=== PATIENT | female | born 1940 | race Caucasian/White ===

== ENCOUNTER 2018-01-24 18:00 | Inpatient (IN) | payer MEDICARE ==
[~2018-01-24] VITALS: Ht 162.6 cm; Wt 61.2 kg
--- NOTE | ~2018-01-24 | PN ---
PATIENT:KENDALL CASEY MEDICAL RECORD: [id number] LOCATION:[facility] ADMISSION DATE: 01/24/18 PROGRESS NOTE DATE OF SERVICE: 01/31/2018 SUBJECTIVE: The patient complains of not feeling "perky" this morning. She says she is more tired than she has been. OBJECTIVE: Adult protective services is involved with his case. Staff notes that the patient overall is improving, but that she does become much more confused and occasionally agitated at night. On exam today, the patient's mood is very pleasant. She orients well toward the examiner. Affect is bland. Speech is somewhat hesitant and shows latency. Content of thought is negative for overt psychosis. Sensorium shows no change. ASSESSMENT: No change in diagnosis. PLAN: 1. Continue current medication. 2. Continue supportive therapy. TRANSINT:[id number] Voice Confirmation ID: [id number] DOCUMENT ID: [id number] VAMSI PRADO III, MD at 0535 CC: [id number] DICTATION DATE: 01/31/18 112 PAYROLL TAX ANALYST: 01/31/18 1327 ADM IN [facility] [address] [id number]
--- NOTE | ~2018-01-24 | PN ---
PATIENT:KENDALL CASEY MEDICAL RECORD: [id number] LOCATION:[facility] ADMISSION DATE: 01/24/18 PROGRESS NOTE DATE OF SERVICE: 02/03/2018 SUBJECTIVE: The patient's case was discussed with staff. She has no new complaint. OBJECTIVE: The patient is in good behavioral control. She has poor insight about her condition. She tolerates her medicines well. ASSESSMENT: No change in diagnoses. PLAN: Current medicines and therapies have been reviewed and will be maintained. I am going to increase the patient's Zoloft to 50 mg daily. TRANSINT:[id number] Voice Confirmation ID: [id number] DOCUMENT ID: [id number] YULIA ZARATE MD at 1458 CC: [id number] DICTATION DATE: 02/03/18 1429 SIGNALS OFFICER: 02/03/18 1441 ADM IN [id number] [place] [address]
--- NOTE | ~2018-01-24 | PN ---
PATIENT:KENDALL CASEY MEDICAL RECORD: [id number] LOCATION:[facility] ADMISSION DATE: 01/24/18 PROGRESS NOTE DATE OF SERVICE: 02/06/2018 SUBJECTIVE: The patient's case was discussed with staff. She has no new complaint. OBJECTIVE: The patient is in good behavioral control. She has no thoughts of harming herself or others. She has moderate impairment of her short-term memory. ASSESSMENT: No change in diagnoses. PLAN: Brief supportive and educational interventions were made. Long Term prognosis is guarded. TRANSINT:[id number] Voice Confirmation ID: [id number] DOCUMENT ID: [id number] YULIA ZARATE MD at 1412 CC: [id number] DICTATION DATE: 02/06/18 1348 BUS AND TROLLEY INSPECTING DISPATCHER: 02/06/18 1443 ADM IN [facility] [address] [place] [address]
--- NOTE | ~2018-01-24 | PN ---
PATIENT:KENDALL CASEY MEDICAL RECORD: [id number] LOCATION:[facility] ADMISSION DATE: 01/24/18 PROGRESS NOTE DATE OF SERVICE: 01/27/2018 SUBJECTIVE: The patient's case was discussed with staff. She has no new complaint. OBJECTIVE: The patient is in good behavioral control with poor insight about her condition. She tolerates her medicines well. ASSESSMENT: No change in diagnoses. PLAN: Current medicines and therapies have been reviewed and will be maintained. Long-term prognosis is guarded. TRANSINT:[id number] Voice Confirmation ID: [id number] DOCUMENT ID: [id number] YULIA ZARATE MD at 1435 CC: [id number] DICTATION DATE: 01/27/18 1455 MAMMA LOGIST: 01/27/18 1643 ADM IN [id number] [place] [address]
--- NOTE | ~2018-01-24 | PN ---
PATIENT:KENDALL CASEY MEDICAL RECORD: [id number] LOCATION:[facility] ADMISSION DATE: 01/24/18 PROGRESS NOTE DATE OF SERVICE: 02/07/2018 SUBJECTIVE: The patient expresses frustration at having to be in the hospital. OBJECTIVE: Staff notes the patient continues to appear quite dysphoric. Discharge planning is working on placement issues. On exam, mood is somewhat dysphoric. Affect is constricted. Speech is very terse. Content of thought shows no overt psychosis. Sensorium is unchanged. ASSESSMENT: No change in diagnosis. PLAN: 1. We will likely adjust antidepressant medication. 2. Continue other current medications. 3. Continue supportive therapy. TRANSINT:[id number] Voice Confirmation ID: [id number] DOCUMENT ID: [id number] VAMSI PRADO III, MD at 0628 CC: [id number] DICTATION DATE: 02/07/18 1110 TURBINE SUBASSEMBLER: 02/07/18 1443 ADM IN [id number] [place] [address]
--- NOTE | ~2018-01-24 | PN ---
PATIENT:KENDALL CASEY MEDICAL RECORD: [id number] LOCATION:[facility] ADMISSION DATE: 01/24/18 PROGRESS NOTE DATE OF SERVICE: 01/30/2018 SUBJECTIVE: The patient's case was discussed with staff. She has no new complaint. OBJECTIVE: The patient is in good behavioral control with limited insight about her condition. She tolerates her medicines well. ASSESSMENT: No change in diagnoses. PLAN: I anticipate the patient can be transitioned out of the hospital soon if this level of improvement is maintained. Long-term prognosis is guarded. TRANSINT:[id number] Voice Confirmation ID: [id number] DOCUMENT ID: [id number] YULIA ZARATE MD at 1324 CC: [id number] DICTATION DATE: 01/30/18 1416 SENIOR COBOL DEVELOPER: 01/30/18 1431 ADM IN [id number] [place] [address]
--- NOTE | ~2018-01-24 | PN ---
PATIENT:KENDALL CASEY MEDICAL RECORD: [id number] LOCATION:[facility] ADMISSION DATE: 01/24/18 PROGRESS NOTE DATE OF SERVICE: 02/13/2018 SUBJECTIVE: The patient's case was discussed with staff. She has no new complaint. OBJECTIVE: The patient denies intent to harm herself or others. She generally tolerates her medicines well. Eye contact is fair. ASSESSMENT: No change in diagnoses. PLAN: Current medicines have been reviewed and will be maintained. Long-term prognosis is guarded. TRANSINT:[id number] Voice Confirmation ID: [id number] DOCUMENT ID: [id number] YULIA ZARATE MD at 0927 CC: [id number] DICTATION DATE: 02/13/18 1209 PLANTING MACHINE CREWMAN: 02/13/18 1508 DIS IN 02/13/18 [facility] [address] [place] [address]
--- NOTE | ~2018-01-24 | PN ---
PATIENT:KENDALL CASEY MEDICAL RECORD: [id number] LOCATION:[facility] ADMISSION DATE: 01/24/18 PROGRESS NOTE DATE OF SERVICE: 02/10/2018 SUBJECTIVE: The patient's case was discussed with staff. She has no new complaint. OBJECTIVE: The patient is in good behavioral control with limited insight about her condition. She does tolerate her medications well. ASSESSMENT: No change in diagnoses. PLAN: Brief supportive and educational interventions were made. Snf prognosis is guarded. TRANSINT:[id number] Voice Confirmation ID: [id number] DOCUMENT ID: [id number] YULIA ZARATE MD at 1429 CC: [id number] DICTATION DATE: 02/10/18 1412 COUNTER HOP: 02/10/18 1424 ADM IN [id number] [place] [address]
--- NOTE | ~2018-01-24 | DS ---
PATIENT:KENDALL CASEY :40 MEDICAL RECORD: [id number] DISCHARGE SUMMARY ADMISSION DATE: 01/24/18 DISCHARGE DATE: 02/13/18 IDENTIFYING DATA: The patient is 77 years old and she was admitted to the hospital on a voluntary basis. The patient lives in an unlocked assisted living center in [place]. She apparently has been confused and demanding to leave and wandering away from the facility. Apparently adult protective services has been involved in her case because of her leaving and lack of supervision. There is a great deal of conflict between the patient's children over how to handle the situation. The patient is very angry about being in an assisted living center and wants to be in her own apartment, which she is not capable of doing. She becomes angry and aggressive with family. HOSPITAL COURSE: The patient was admitted to the hospital and comprehensively evaluated from both medical, psychological, and social standpoint. She was certainly appropriate for a locked facility and that was arranged. She was clearly demented and it was advanced. She was treated with both mood stabilizing and memory enhancing medications and did show significant improvement. She subsequently was transitioned out of the hospital. DISCHARGE DIAGNOSES: AXIS I: Senile dementia of the Alzheimer's type with behavioral disturbances. AXIS II: None. AXIS III: Hypertension. AXIS IV: Moderate stressors. AXIS V: Global assessment of functioning is 40. PLAN: At the time of discharge, the patient was in good behavioral control with limited insight about her condition. She was tolerating her medications well. Her long-term prognosis is guarded. Followup is to be with her primary care correction physician. TRANSINT:[id number] Voice Confirmation ID: [id number] DOCUMENT ID: [id number] YULIA ZARATE MD at 1203 CC: [id number] DICTATION DATE: 02/20/18 1330 OPEN HEARTH FURNACE OPERATOR: 02/20/18 1434 DIS IN 02/13/[address] [facility] [address] [place] [address]
--- NOTE | ~2018-01-24 | PN ---
PATIENT:KENDALL CASEY MEDICAL RECORD: [id number] LOCATION:[facility] ADMISSION DATE: 01/24/18 PROGRESS NOTE DATE OF SERVICE: 02/12/2018 SUBJECTIVE: The patient's case was discussed with staff. She has no new complaint. OBJECTIVE: The patient is in good behavioral control with limited insight about her condition. She tolerates her medicines well. ASSESSMENT: No change in diagnoses. PLAN: The patient was scheduled to leave today but is going to have to be tomorrow. There are issues between the patient's adult protective services mammography supervisor and the fpc. Long-term prognosis is guarded. TRANSINT:[id number] Voice Confirmation ID: [id number] DOCUMENT ID: [id number] YULIA ZARATE MD at 1200 CC: [id number] DICTATION DATE: 02/12/18 165 LEGAL ASSISTANT: 02/12/18 2253 ADM IN [address] [place] [address]
--- NOTE | ~2018-01-24 | PN ---
PATIENT:KENDALL CASEY MEDICAL RECORD: [id number] LOCATION:[facility] ADMISSION DATE: 01/24/18 PROGRESS NOTE DATE OF SERVICE: 02/05/2018 SUBJECTIVE: The patient's case was discussed with staff. She has no new complaint. OBJECTIVE: The patient is in good behavioral control. She has poor insight about her condition. She generally tolerates her medicines well. ASSESSMENT: No change in diagnoses. PLAN: Brief supportive and educational interventions were made. Long-term prognosis is guarded. I anticipate she can be transitioned out of the hospital soon if placement can be arranged. She is being considered by a half-way in [place]. The patient's daughter lives in [place] and that is why half-way in that [facility] has been selected. TRANSINT:[id number] Voice Confirmation ID: [id number] DOCUMENT ID: [id number] YULIA ZARATE MD at 1339 CC: [id number] DICTATION DATE: 02/05/18 1456 SHOE REPAIR COBBLER: 02/05/18 1755 ADM IN [facility] [address] [place] [address]
--- NOTE | ~2018-01-24 | PN ---
PATIENT:KENDALL CASEY MEDICAL RECORD: [id number] LOCATION:[facility] ADMISSION DATE: 01/24/18 PROGRESS NOTE DATE OF SERVICE: 02/08/2018 SUBJECTIVE: No new complaint. OBJECTIVE: Staff reports the patient has been irritable this morning. She typically does not like to get out of bed early in the morning. However, later in the day, she is passively cooperative. On exam, mood very irritable. Affect is brittle. Speech is terse. Content of thought focuses on somatic concerns. Sensorium shows no change. ASSESSMENT: No change in diagnosis. PLAN: 1. Continue current medication. 2. Continue supportive therapy. TRANSINT:[id number] Voice Confirmation ID: [id number] DOCUMENT ID: [id number] VAMSI PRADO III, MD at 0706 CC: [id number] DICTATION DATE: 02/08/18 0832 DATA SUPPORT SPECIALIST: 02/08/18 1212 ADM IN [id number] [place] [address]
--- NOTE | ~2018-01-24 | PN ---
PATIENT:KENDALL CASEY MEDICAL RECORD: [id number] LOC[facility] ADMISSION DATE: 01/24/18 PROGRESS NOTE DATE OF SERVICE: 01/28/2018 SUBJECTIVE: The patient's case was discussed with staff. She has no new complaint. OBJECTIVE: The patient is in good behavioral control, but severely impaired cognitively. She has been somewhat irritable, but not rising to the level of being an unmanageable symptom. She is tolerating her medicines well. ASSESSMENT: No change in diagnoses. PLAN: Supportive and educational interventions were made. Long-term prognosis is guarded. TRANSINT:[id number] Voice Confirmation ID: [id number] DOCUMENT ID: [id number] YULIA ZARATE MD at 1352 CC: [id number] DICTATION DATE: 01/28/18 1458 SECURED ENTRANCE MONITOR: 01/28/18 1607 ADM IN [id number] [place] [id number]
--- NOTE | ~2018-01-24 | PN ---
PATIENT:KENDALL CASEY MEDICAL RECORD: [id number] LOC[facility] ADMISSION DATE: 01/24/18 PROGRESS NOTE DATE OF SERVICE: 02/11/2018 SUBJECTIVE: The patient's case was discussed with staff. She has no new complaint. OBJECTIVE: The patient denies intent to harm herself or others. She generally tolerates her medicines well. She is impaired cognitively, but not aggressive. ASSESSMENT: No change in diagnoses. PLAN: The patient will be maintained on current medications. There is a delay in her discharge and she cannot be discharged until tomorrow because of some problems with adult protective services needing to sign papers for the halfway. TRANSINT:[id number] Voice Confirmation ID: [id number] DOCUMENT ID: [id number] YULIA ZARATE MD at 1631 CC: [id number] DICTATION DATE: 02/11/18 1441 BRASS WIND INSTRUMENTS TUBE BENDER: 02/11/18 1453 ADM IN [facility] [address] [place] [address]
--- NOTE | ~2018-01-24 | PN ---
PATIENT:KENDALL CASEY MEDICAL RECORD: [id number] LOC[facility] ADMISSION DATE: 01/24/18 PROGRESS NOTE DATE OF SERVICE: 01/29/2018 SUBJECTIVE: The patient's case was discussed with staff. She has no new complaint. OBJECTIVE: The patient denies intent to harm herself or others. She tolerates her medicines well. ASSESSMENT: No change in diagnoses. PLAN: Brief supportive and educational interventions were made. Long-term prognosis is guarded. The patient is anxious but it has improved. TRANSINT:[id number] Voice Confirmation ID: [id number] DOCUMENT ID: [id number] YULIA ZARATE MD at 1308 CC: [id number] DICTATION DATE: 01/29/18 1415 TRANSIT OPERATOR: 01/29/18 1449 ADM IN [id number] [place] [address]
--- NOTE | ~2018-01-24 | PN ---
PATIENT:EKNDALL CASEY MEDICAL RECORD: [id number] LOC[facility] ADMISSION DATE: 01/24/18 PROGRESS NOTE DATE OF SERVICE: 02/04/2018 SUBJECTIVE: The patient's case was discussed with staff. She has no new complaint. OBJECTIVE: The patient denies intent to harm herself or others. She does tolerate her medications well. ASSESSMENT: No change in diagnoses. PLAN: Brief supportive and educational interventions were made. The patient is being considered by a alf in [place]. She is being considered for a placement so far away because her daughter lives there. She is in need of some surgical attention and has been referred back to the surgeon in [place] who performed the most recent surgery. TRANSINT:[id number] Voice Confirmation ID: [id number] DOCUMENT ID: [id number] YULIA ZARATE MD at 1436 CC: [id number] DICTATION DATE: 02/04/18 1510 WIND TURBINE DESIGN ENGINEER: 02/04/18 1543 ADM IN [id number] [place] [address]
--- NOTE | ~2018-01-24 | PSY ---
PATIENT NAME:KENDALL CASEY MEDICAL RECORD: [id number] : 40 [facility] ADMISSION DATE: 01/24/18 ACCOUNT: [id number] PSYCHIATRIC EVALUATION DATE OF EVALUATION: 01/25/18 IDENTIFYING DATA: The patient is 77 years old and she was admitted to the hospital on a voluntary basis. CHIEF COMPLAINT: None. HISTORY OF PRESENT ILLNESS: The patient lives in an unlocked assisted living center in [place]. She apparently is confused and demanding to leave and has been wandering away from the facility. Apparently adult protective services have been involved in her case in the past, although I do not know the details of this. I do know that there has been some conflict between siblings and the patient is brought to us involuntarily on an emergency adult protective services hold. The patient is not angry about this, but says that she wants to go and live in her own apartment and not at the assisted living center. She says she has never been diagnosed with dementia and does not know why she is not being allowed to do this. She denies depressive symptoms. She denies psychotic symptoms and she denies that she was having any kind of aggression at the assisted living center. She does recall that she lived there. PAST MEDICAL HISTORY: Significant for hypercholesterolemia and hypertension. PAST PSYCHIATRIC HISTORY: None by her account. FAMILY PSYCHIATRIC HISTORY: None by her account. ALLERGIES: PENICILLIN AND CODEINE. CURRENT MEDICATIONS: Include hydrocodone, aspirin, Pravachol, Toprol, Ventolin. SOCIAL HISTORY: The patient is . She has adult children involved with her care. She lives in an assisted living center. She denies a history of drug or alcohol abuse. MENTAL STATUS EXAMINATION: The patient is awake, alert, and oriented to person and place, but not to time or situation. She does not know the year at all. She would not even make a guess. She just laughs and says she does not keep up with such things. She does not know why she is here and has no recollection of the events that took place yesterday that brought her here. Her mood is flat. Her affect is constricted. Thought processes are circumstantial. Memory, concentration, and abstraction abilities are at least moderately impaired and she denies any active intent to harm herself or others as well as any overt psychotic symptoms. ASSETS: Supportive family members. LIABILITIES: Limited insight. DIAGNOSTIC IMPRESSION: AXIS I: Senile dementia of the Alzheimer's type with behavioral disturbances. AXIS II: None. AXIS III: Hypertension. AXIS IV: Moderate stressors. AXIS V: Global assessment of functioning is 35. PLAN: At this time, the patient is admitted to the hospital secondary to aggressive behavior associated with a dementing illness. She will be comprehensively evaluated from both a medical, psychological, and social standpoint. She will be treated with both mood stabilizing and memory enhancing medications. Her long-term prognosis is guarded. TRANSINT:[id number] Voice Confirmation ID: [id number] DOCUMENT ID: [id number] YULIA ZARATE MD at 0822 CC: [id number] DICTATION DATE: 01/25/18 1215 REPAIR MANAGER: 01/25/18 1243 ADM IN [facility] [address] [id number]
[2018-01-24] MEDS ORDERED: APAP325 MG PO (21:04)
[2018-01-24] MEDS ORDERED: ADVAIR 100/501 DISK (21:05)
[2018-01-24] MEDS ORDERED: BAYER CHEWABLE81 MG PO (21:08)
[2018-01-24] MEDS ORDERED: PROAIR HFA8.5 GM INH (21:08)
[2018-01-24] MEDS ORDERED: BIOFREEZE118 ML (21:10)
[2018-01-24] MEDS ORDERED: CELEXA20 MG (21:11)
[2018-01-24] MEDS ORDERED: ELIQUIS2.5 MG (21:11)
[2018-01-24] MEDS ORDERED: MULTIPLE VITAMI1 TA1 (21:14)
[2018-01-24] MEDS ORDERED: TOPROL XL50 MG (21:15)
[2018-01-24] MEDS ORDERED: NICODERM C1 PATCH .3 (21:15)
[2018-01-24] MEDS ORDERED: HYDROCODON-ACE1 EAC7 PO (21:20)
[2018-01-24] MEDS ORDERED: PRAVACHOL20 MG PO (21:21)
[2018-01-24] MEDS ORDERED: SPIRIVA18 MCG INH (21:22)
[2018-01-24] MEDS ORDERED: ACETAMINOPHEN325 MG PO (21:25)
[2018-01-25 00:22] VITALS: BP 178/92; BMI 23.2
[2018-01-25 06:19] LABS: BASOPHILS 0.2 % (0-2); EOSINOPHILS 2.6 % (0-7); HEMATOCRIT 41.1 % (36.0-48.0); HEMOGLOBIN 13.3 g/dL (12-16); IMMATURE GRANULOCYTES 0.2 % (0-5); LYMPHOCYTES 32.9 % (15-50); MCH 29.2 pg (26.0-34.0); MCHC 32.4 g/dL (31.0-37.0); MCV 90.1 fL (80.0-100.0); MEAN PLATELET VOLUME 9.1 fL (7.4-10.4); MONOCYTES 8.1 % (2-11); PLATELET COUNT 347 10x3/uL (130-400); RBC 4.56 10x6/uL (4.00-5.40); RDW 14.7 % (11.5-14.5); WBC 8.1 10x3/uL (4.8-10.8)
[2018-01-25 07:04] LABS: ALBUMIN 3.3 g/dL (3.4-5.0); ALKALINE PHOSPHATASE 113 U/L (46-116); ALT (SGPT) 36 U/L (10-68); BILIRUBIN - TOTAL 0.29 mg/dL (0.2-1.3); CALC OSMOLALITY 280 mosm/kg (275-300); CALCIUM 8.6 mg/dL (8.5-10.1); CARBON DIOXIDE 18.2 mmol/L (21.0-32.0); CHLORIDE - SERUM 107 mmol/L (98-107); CHOLESTEROL, TOTAL 188 mg/dL (0-200); CREATININE - SERUM 0.7 mg/dL (0.6-1.3); GLUCOSE 82 mg/dL (74-106); POTASSIUM - SERUM 5.1 mmol/L (3.5-5.1); PROTEIN - SERUM 7.1 g/dL (6.4-8.2); SODIUM 139 mmol/L (136-145); THYROID STIMULATING HORMONE 1.96 uIU/mL (0.36-3.74); TRIGLYCERIDE 147 mg/dL (30-200); UREA NITROGEN 25 mg/dL (7-18); eGFR NON AFRICAN AMERICAN 86 mL/min (90-120)
[2018-01-25 07:44] VITALS: BP 139/68
[2018-01-25 07:50] LABS: CHOL - HDL RATIO 2.6 ratio (2.3-4.1); HDL CHOLESTEROL 73 mg/dL (32-96); LDL CHOLESTEROL 86 mg/dL (0-100); LDL-HDL RATIO 1.2 ratio (1.5-3.5)
[2018-01-25 09:17] VITALS: BMI 23.1
[2018-01-25 19:56] VITALS: BP 131/74; BP 160/82
[2018-01-26 07:23] VITALS: BP 133/82
[2018-01-26 19:55] VITALS: BP 136/75
[2018-01-27 07:00] VITALS: BP 158/88
[2018-01-27 07:09] LABS: VITAMIN D 25 HYDROXY 13.5 ng/mL (30.0-100.0)
[2018-01-27 08:41] VITALS: BMI 23.2
[2018-01-27 21:02] VITALS: BP 144/72
[2018-01-28 03:10] LABS: RAPID PLASMA REAGIN Non Reactive (Non Reactive)
[2018-01-28 07:49] VITALS: BP 128/78
[2018-01-28 20:25] VITALS: BP 156/63
[2018-01-29 09:30] VITALS: BP 168/94
[2018-01-29 20:02] VITALS: BP 127/69
[2018-01-30 08:03] VITALS: BP 174/100
[2018-01-30 20:17] VITALS: BP 128/76
[2018-01-31 08:12] VITALS: BP 164/89
[2018-01-31 11:22] VITALS: Ht 162.6 cm; Wt 61.2 kg
[2018-01-31 20:35] VITALS: BP 144/76
[2018-02-01 09:35] VITALS: BP 164/89
[2018-02-01 20:50] VITALS: BP 152/84
[2018-02-02 08:49] VITALS: BP 162/86
[2018-02-02 20:15] VITALS: BP 144/67
[2018-02-03 09:36] VITALS: BP 169/86
[2018-02-03 20:32] VITALS: BP 173/92
[2018-02-04 08:26] VITALS: BP 153/75
[2018-02-04 20:21] VITALS: BP 157/83
[2018-02-05 09:33] VITALS: BP 163/80
[2018-02-05 19:21] VITALS: BP 152/79
[2018-02-06 21:53] VITALS: BP 140/67
[2018-02-07 18:43] VITALS: BP 151/80
[2018-02-07 19:27] VITALS: BP 141/71
[2018-02-08 10:33] VITALS: BP 145/85
[2018-02-08 19:42] VITALS: BP 166/85
[2018-02-09 07:00] VITALS: BP 182/83
[2018-02-09 19:36] VITALS: BP 184/88
[2018-02-10 07:47] VITALS: BP 157/79
[2018-02-10] MEDS ORDERED: TOPROL XL50 MG PO (14:26)
[2018-02-10] MEDS ORDERED: ARICEPT5 MG PO (14:26)
[2018-02-10] MEDS ORDERED: ZOLOFT100 MG PO (14:27)
[2018-02-10] MEDS ORDERED: PROTONIX40 MG PO (14:28)
[2018-02-10] MEDS ORDERED: LIDODERM 5 %1 PATCH TRANSDERM (14:28)
[2018-02-10 20:32] VITALS: BP 120/60
[2018-02-11 07:25] VITALS: BP 167/89
[2018-02-11 20:20] VITALS: BP 145/73
[2018-02-12 09:39] VITALS: BP 154/83
[2018-02-12 19:00] VITALS: BP 154/69
[2018-02-13 08:11] VITALS: BP 143/89
== END 2018-02-13 14:45 | DRG 57 ==
LOC: D.PSYCH 18:00
PROVIDERS: Psychiatry & Neurology Psychiatry
DX: G30.1 Alzheimer's disease with late onset (principal); F02.81 Dementia in other diseases classified elsewhere, unspecified severity, with behavioral disturbance; I10 Essential (primary) hypertension; I25.10 Atherosclerotic heart disease of native coronary artery without angina pectoris; F41.8 Other specified anxiety disorders; J44.9 Chronic obstructive pulmonary disease, unspecified; E78.5 Hyperlipidemia, unspecified; Z93.3 Colostomy status; K43.5 Parastomal hernia without obstruction or gangrene